=== PATIENT | female | born 1955 | race African-American/Black ===

== ENCOUNTER 2017-09-09 19:19 | Emergency (ER) | payer BC ==
[2017-09-09] MEDS ORDERED: METHYLPREDNISOLONE INJ 125 MG/2 ML SDV IV ONE (19:38)
--- NOTE | 2017-09-09 19:38 | ER Document Report ---
ED Allergic Reaction - General Mode of Arrival: Ambulatory Information source: Patient TRAVEL OUTSIDE OF THE [place] IN LAST 30 DAYS: No <MONTY AMADOR - Last Filed: 09/09/17 20:13> <REESE JENNINGS - Last Filed: 09/09/17 23:19> - General Chief Complaint: Lip Swelling Stated Complaint: LIP SWELLING Time Seen by Provider: 09/09/17 19:33 Notes: Patient is a 61-year-old female who presents to the emergency department today with complaints of lip swelling. Patient states she also has had a "sore and scratchy throat" since noticing this lip swelling. Patient states she has no allergies to medications that she knows of. Patient is on lisinopril. (MONTY AMADOR) - Related Data Allergies/Adverse Reactions: RICARDO Inhibitors Allergy (Verified 09/09/17 19:48) Angioneurotic Edema lisinopril Allergy (Verified 09/09/17 19:48) Angioneurotic Edema Past Medical History - General Information source: Patient - Social History Smoking Status: Never Smoker Cigarette use (# per day): No Frequency of alcohol use: None Drug Abuse: None Lives with: Family Family History: Reviewed & Not Pertinent Patient has suicidal ideation: No Patient has homicidal ideation: No - Past Medical History Cardiac Medical History: Reports: Hx Hypertension GI Medical History: Reports: Hx Gastroesophageal Reflux Disease Musculoskeltal Medical History: Reports Hx Arthritis Surgical Hx: Negative <MONTY AMADOR - Last Filed: 09/09/17 20:13> Review of Systems - Review of Systems Constitutional: No symptoms reported EENT: See HPI, Other - lip swelling, "scratchy/sore throat" Cardiovascular: No symptoms reported Respiratory: No symptoms reported Gastrointestinal: No symptoms reported Genitourinary: No symptoms reported Female Genitourinary: No symptoms reported Musculoskeletal: No symptoms reported Skin: No symptoms reported Hematologic/Lymphatic: No symptoms reported Neurological/Psychological: No symptoms reported -: Yes All other systems reviewed and negative <MONTY AMADOR - Last Filed: 09/09/17 20:13> Physical Exam - Vital signs Interpretation: Normal - General General appearance: Appears well, Alert - HEENT Head: Normocephalic, Atraumatic Eyes: Normal Pupils: PERRL Mouth/Lips: Angioedema - Bottom lower lip on left only Pharynx: Normal - Respiratory Respiratory status: No respiratory distress Chest status: Nontender Breath sounds: Normal Chest palpation: Normal - Cardiovascular Rhythm: Regular Heart sounds: Normal auscultation Murmur: No - Abdominal Inspection: Normal Distension: No distension Bowel sounds: Normal Tenderness: Nontender Organomegaly: No organomegaly - Back Back: Normal, Nontender - Extremities General upper extremity: Normal inspection, Nontender, Normal color, Normal ROM , Normal temperature General lower extremity: Normal inspection, Nontender, Normal color, Normal ROM , Normal temperature, Normal weight bearing. No: Jo's sign - Neurological Neuro grossly intact: Yes Cognition: Normal Orientation: AAOx4 Cindy Coma Scale Eye Opening: Spontaneous Cindy Coma Scale Verbal: Oriented Cindy Coma Scale Motor: Obeys Commands Cindy Coma Scale Total: 15 Speech: Normal Motor strength normal: LUE, RUE, LLE, RLE Sensory: Normal - Psychological Associated symptoms: Normal affect, Normal mood - Skin Skin Temperature: Warm Skin Moisture: Dry Skin Color: Normal <REESE JENNINGS - Last Filed: 09/09/17 23:19> - Vital signs Vitals: Temp Pulse Resp BP Pulse Ox 98.5 F 77 18 121/66 97 09/09/17 19:24 09/09/17 19:24 09/09/17 19:24 09/09/17 19:24 09/09/17 19:24 Course - Laboratory Result Diagrams: 09/09/17 19:43 09/09/17 19:43 <MONTY AMADOR - Last Filed: 09/09/17 20:13> - Laboratory Result Diagrams: 09/09/17 19:43 09/09/17 20:45 <REESE JENNINGS - Last Filed: 09/09/17 23:19> - Re-evaluation Re-evalutation: 09/09/17 23:17 Patient is much improved at this time will be discharged home. Patient's last dose of lisinopril was this morning. It did not seem that steroids helped much. Swelling has gone down however since she has been here. She is not to take RICARDO inhibitors ever again. Understands and agrees with plan. Stable for discharge. Return immediately if any worsening or concerning symptoms. (REESE JENNINGS) - Vital Signs Vital signs: Temp Pulse Resp BP Pulse Ox 98.5 F 77 17 121/80 97 09/09/17 19:24 09/09/17 19:24 09/09/17 22:55 09/09/17 22:56 09/09/17 22:55 - Laboratory Laboratory results interpreted by me: 09/09/17 20:45 Carbon Dioxide 21 L Discharge <MONTY AMADOR - Last Filed: 09/09/17 20:13> <REESE JENNINGS - Last Filed: 09/09/17 23:19> - Discharge Clinical Impression: RICARDO inhibitor-aggravated angioedema Qualifiers: Encounter type: initial encounter Qualified Code(s): T78.3XXA - Angioneurotic edema, initial encounter; T46.4X5A - Adverse effect of angiotensin-converting- enzyme inhibitors, initial encounter; T46.4X5A - Adverse effect of angiotensin- converting-enzyme inhibitors, initial encounter Condition: Stable Disposition: HOME, SELF-CARE Instructions: Angioedema ([facility]) Additional Instructions: Do not take lisinopril or any other RICARDO inhibitors ever again. Scribe Attestation: 09/09/17 23:18 I personally performed the services described in the documentation, reviewed and edited the documentation which was dictated to the scribe in my presence, and it accurately records my words and actions. (REESE JENNINGS) Scribe Documentation - Scribe Written by Scribe:: Davi Lagos, 09/09/2017 2016 acting as scribe for :: Everett <MONTY AMADOR - Last Filed: 09/09/17 20:13>
[2017-09-09 19:58] LABS: ABSOLUTE BASOPHILS # (AUTO) 0.1 10^3/uL (0.0-0.2); ABSOLUTE EOSINOPHILS # (AUTO) 0.4 10^3/uL (0.0-0.6); ABSOLUTE LYMPHOCYTES (AUTO) 2.8 10^3/uL (0.5-4.7); ABSOLUTE MONOCYTES (AUTO) 0.8 10^3/uL (0.1-1.4); ABSOLUTE NEUT (AUTO) 3.9 10^3/uL (1.7-8.2); BASOPHILS % (AUTO) 1.3 % (0-2); EOSINOPHILS % (AUTO) 5.2 % (0-6); HEMATOCRIT 40.5 % (36.0-47.0); HEMOGLOBIN 14.1 g/dL (12.0-15.5); HGB HCT DIFFERENCE 1.8; LYMPHOCYTES % (AUTO) 34.7 % (13-45); MEAN CORPUSCULAR HGB CONC 34.9 g/dL (32.0-36.0); MEAN CORPUSCULAR VOLUME 83 fl (80-97); MONOCYTES % (AUTO) 10.3 % (3-13); RED BLOOD COUNT 4.86 10^6/uL (3.72-5.28); RED CELL DISTRIBUTION WIDTH 13.5 % (11.5-14.0); SEGMENTED NEUTROPHILS % (AUTO) 48.5 % (42-78)
[2017-09-09 21:26] LABS: ANION GAP 14 (5-19); BLOOD UREA NITROGEN 18 mg/dL (7-20); CALCIUM 9.1 mg/dL (8.4-10.2); CARBON DIOXIDE 21 mmol/L (22-30); CHLORIDE 103 mmol/L (98-107); CREATININE RESULT 0.86 mg/dL (0.52-1.25); GLUCOSE 89 mg/dL (75-110); SODIUM 137.8 mmol/L (137-145)
[2017-09-09 21:44] LABS: PROTHROMBIN TIME 13.3 SEC (11.4-15.4)
[2017-09-09 21:45] LABS: PARTIAL THROMBOPLASTIN TIME 28.4 SEC (23.5-35.8)
[2017-09-09 23:05] VITALS: BP 121/80
== END 2017-09-09 23:06 | disposition home or self-care (01) ==
LOC: ER 19:19
DX: T78.3XXA Angioneurotic edema, initial encounter (principal); T46.4X5A Adverse effect of angiotensin-converting-enzyme inhibitors, initial encounter; R22.0 Localized swelling, mass and lump, head; I10 Essential (primary) hypertension; X58.XXXA Exposure to other specified factors, initial encounter; Z79.899 Other long term (current) drug therapy
CPT/HCPCS: 99283; 96374; 36415; 85025; 85610; 85730; 80048; J2930

== ENCOUNTER 2017-09-10 19:44 | Emergency (ER) | payer BC ==
[2017-09-10] MEDS ORDERED: KETOROLAC TROMETHAMINE INJ/PF 30 MG/1 ML SDV IV ONE (22:17)
[2017-09-10] MEDS ORDERED: METOCLOPRAMIDE HCL INJ/PF 10 MG/2 ML SDV IV ONE (22:17)
--- NOTE | 2017-09-10 22:20 | ER Document Report ---
ED General - General Chief Complaint: Headache Stated Complaint: HEADACHE Time Seen by Provider: 09/10/17 20:41 Notes: Patient is a 61-year-old female seen yesterday for angioedema secondary to an RICARDO inhibitor who presents today with a headache that is been present for 3 days. Patient is described as a bitemporal and frontal dull, constant, aching headache. States this feels similar to headaches she has had in the past. It was gradual onset and has been persistent since that time. Nothing worsens the headache. She has not tried anything to improve the headache stating "I do not have anything to take". She has not seen a primary care doctor regarding this concern. States there is nothing new or different about the headache that prompted her come in today other than that it still has not gone away. She denies any fever or constitutional symptoms. No vomiting, weakness or numbness. No history of aneurysms in the past. TRAVEL OUTSIDE OF THE [place] IN LAST 30 DAYS: No - Related Data Allergies/Adverse Reactions: RICARDO Inhibitors Allergy (Verified 09/09/17 19:48) Angioneurotic Edema lisinopril Allergy (Verified 09/09/17 19:48) Angioneurotic Edema Past Medical History - General Information source: Patient - Social History Smoking Status: Never Smoker Frequency of alcohol use: None Drug Abuse: None Lives with: Family Family History: Reviewed & Not Pertinent Patient has suicidal ideation: No Patient has homicidal ideation: No - Past Medical History Cardiac Medical History: Reports: Hx Hypertension Renal/ Medical History: Denies: Hx Peritoneal Dialysis GI Medical History: Reports: Hx Gastroesophageal Reflux Disease Musculoskeltal Medical History: Reports Hx Arthritis - Immunizations Hx Diphtheria, Pertussis, Tetanus Vaccination: Yes Review of Systems - Review of Systems Notes: Constitutional: Negative for fever. HENT: Negative for sore throat. Eyes: Negative for visual changes. Cardiovascular: Negative for chest pain. Respiratory: Negative for shortness of breath. Gastrointestinal: Negative for abdominal pain, vomiting or diarrhea. Genitourinary: Negative for dysuria. Musculoskeletal: Negative for back pain. Skin: Negative for rash. Neurological: Positive for headache 10 point ROS negative except as marked above and in HPI. Physical Exam - Vital signs Vitals: Temp Pulse Resp BP Pulse Ox 97.7 F 79 16 127/84 H 96 09/10/17 19:53 09/10/17 19:53 10/19/17 19:53 09/10/17 19:53 09/10/17 19:53 Interpretation: Normal Notes: PHYSICAL EXAMINATION: GENERAL: Well-appearing, well-nourished and in no acute distress. HEAD: Atraumatic, normocephalic. EYES: Pupils equal round and reactive to light, extraocular movements intact, sclera anicteric, conjunctiva are normal. ENT: nares patent, oropharynx clear without exudates. Moist mucous membranes. NECK: Normal range of motion, supple without lymphadenopathy LUNGS: Breath sounds clear to auscultation bilaterally and equal. No wheezes rales or rhonchi. HEART: Regular rate and rhythm without murmurs ABDOMEN: Soft, nontender, normoactive bowel sounds. No guarding, no rebound. No masses appreciated. EXTREMITIES: Normal range of motion, no pitting or edema. No cyanosis. NEUROLOGICAL: Face symmetric. Tongue protrudes midline. Extraocular motions intact. Pupils are 2 mm and equally reactive. Normal speech, normal gait. 5 out of 5 strength in both the distal and proximal upper and lower extremities bilaterally. Sensation is grossly intact throughout. Finger to nose testing normal. Pronator drift normal. PSYCH: Normal mood, normal affect. SKIN: Warm, Dry, normal turgor, no rashes or lesions noted. Course - Re-evaluation Re-evalutation: 09/10/17 22:18 Patient presents with a headache that is been present for the last 3 days. Unchanged today. Appears to be most consistent with tension versus migrainous type headache. Headache was not maximal in onset, patient has no focal neurologic deficits, no nuchal rigidity, vital signs within normal limits, no papilledema, and patient is overall well in appearance. Based on clinical history and examination I do not suspect an acute subarachnoid hemorrhage, dural venous sinus thrombosis, acute meningitis, or intercranial mass. Given my low clinical suspicion for any acute life-threatening etiology, I do not feel advanced neuro imaging or laboratory testing is indicated at this time. Patient has had resolution after administration of metoclopramide and ketorolac. Regarding patient's intermittent shortness of breath: She states that this is chronic in nature, has been present for greater than 5-6 years and has been evaluated extensively by her primary care doctor. She felt she would mention it while she was here for the headache but knows that this is not the reason for her acute presentation. I do not believe there is any indication for further labs or imaging in regards to this issue as she denies any symptoms at time of my presentation and again emphasized that there is nothing new or different about this relative to the last 5-6 years. I have encouraged her to follow-up with her primary care doctor regarding this concern. At this time will discharge with return precautions and follow-up recommendations. Verbal discharge instructions given a the bedside and opportunity for questions given. Medication warnings reviewed. Patient is in agreement with this plan and has verbalized understanding of return precautions and the need for primary care follow-up in the next 24-72 hours. - Vital Signs Vital signs: Temp Pulse Resp BP Pulse Ox 97.7 F 79 19 116/74 96 09/10/17 19:53 09/10/17 19:53 09/10/17 22:21 09/10/17 22:21 09/10/17 22:21 Discharge - Discharge Clinical Impression: Headache Qualifiers: Headache type: tension-type Headache chronicity pattern: acute headache Intractability: not intractable Qualified Code(s): G44.209 - Tension-type headache, unspecified, not intractable Condition: Good Disposition: HOME, SELF-CARE Additional Instructions: You have been seen in the Emergency Department (ED) for a headache. Please use Tylenol (acetaminophen) or Motrin (ibuprofen) as needed for symptoms, but only as written on the box. As we have discussed, please follow up with your primary care doctor as soon as possible regarding today's ED visit and your headache symptoms. Call your doctor or return to the ED if you have a worsening headache, sudden and severe headache, confusion, slurred speech, facial droop, weakness or numbness in any arm or leg, extreme fatigue, or other symptoms that concern you. Y Referrals: JAHAIRA ARRIAGA MD [Primary Care Provider] - Follow up as needed
[2017-09-10 22:31] VITALS: BP 116/74
== END 2017-09-10 22:50 | disposition home or self-care (01) ==
LOC: ER 19:44
DX: G44.209 Tension-type headache, unspecified, not intractable (principal); I10 Essential (primary) hypertension
CPT/HCPCS: 99283; J1885; J2765

== ENCOUNTER → 2017-10-19 | Outpatient (CLI) | payer BC ==
--- NOTE | 2017-10-19 11:39 | RADIOLOGY REPORT (SQ) ---
EXAM DESCRIPTION: SHOULDER LEFT 2 OR MORE VIEWS COMPLETED DATE/TIME: 10/19/2017 11:21 am REASON FOR STUDY: PAIN IN SHOULDER R51 HEADACHE COMPARISON: None. NUMBER OF VIEWS: Three views. TECHNIQUE: Internal rotation, external rotation, and Y view images acquired of the left shoulder. LIMITATIONS: None. FINDINGS: MINERALIZATION: Normal. BONES: No acute fracture or dislocation. No worrisome bone lesions. JOINTS: No dislocation. VISUALIZED LUNGS AND RIBS: No pneumothorax. No rib fracture. SOFT TISSUES: There are some small calcifications in the rotator cuff. OTHER: No other significant finding. IMPRESSION: Possible calcific tendinosis in the rotator cuff. No acute abnormality is seen the join t. TECHNICAL DOCUMENTATION: JOB ID: [id number] [employer]- All Rights Reserved
--- NOTE | 2017-10-19 13:10 | RADIOLOGY REPORT (SQ) ---
EXAM DESCRIPTION: CERV SP 4 OR 5 VIEWS COMPLETED DATE/TIME: 10/19/2017 11:21 am REASON FOR STUDY: NECK PAIN R51 HEADACHE COMPARISON: None. NUMBER OF VIEWS: Five views. TECHNIQUE: AP, lateral, obliques and odontoid radiographic images acquired of the cervical spine. LIMITATIONS: None. FINDINGS: MINERALIZATION: Normal. ALIGNMENT: Anatomic. VERTEBRAE: Vertebral bodies of normal height. DISCS: Mild disc space narrowing C4-5, C5-6, C6-7. FORAMINA: Mild multilevel right foraminal narrowing due to uncovertebral spurring. This is present a t C4-5, C5-6, C6-7. Left neural foramina are widely patent. LATERAL AND POSTERIOR ELEMENTS: Facets, lateral masses and spinous processes without significant find ings. HARDWARE: None in the spine. SOFT TISSUES: No masses or calcifications. Lung apices clear. OTHER: No other significant finding. IMPRESSION: Cervical spondylosis. No spinal malalignment, fracture or bone lesion. TECHNICAL DOCUMENTATION: JOB ID: [id number] [employer]- All Rights Reserved
--- NOTE | 2017-10-19 13:52 | RADIOLOGY REPORT (SQ) ---
EXAM DESCRIPTION: MRI HEAD COMBO COMPLETED DATE/TIME: 10/19/2017 12:31 pm REASON FOR STUDY: THROBBING HEADACHE R51 HEADACHE COMPARISON: None. TECHNIQUE: Multiplanar imaging includes noncontrasted T1, T2, FLAIR, and Diffusion with ADC map seq uences. Contrast enhanced T1 images. Images stored on PACS. CONTRAST TYPE AND DOSE: 15 mL Multihance. RENAL FUNCTION: GFR > 60. LIMITATIONS: None. FINDINGS: ANATOMY: No anomalies. Normal vascular flow voids. Pituitary fossa normal. CSF SPACES: Normal size and contour. No hemorrhage. CEREBRUM: Mild to moderate number of high-signal intensity lesions scattered throughout the white mat ter on FLAIR imaging with distribution suggesting small vessel vasculopathy. Likely microvascular is chemic change. Sulci and gyri normal in size and contour. No evidence of hemorrhage, mass or extraaxi al fluid collection. No enhancing lesions. POSTERIOR FOSSA: No signal alteration. No hemorrhage. No edema, masses or mass effect. Internal audit ory canals, cerebello-pontine angles, mastoids normal. DIFFUSION: Negative for acute or subacute infarction. ORBITS: No masses. Globes normal. PARANASAL SINUSES: No fluid levels. Mucosa normal. OTHER: No other significant finding. IMPRESSION: 1. 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 Preserved parenchymal volume. No hemorrhage, mass, shift or abnormal enh ancement. EVIDENCE OF ACUTE STROKE: NO. TECHNICAL DOCUMENTATION: JOB ID: [id number] [employer]- All Rights Reserved
== END ==
LOC: RAD 10:33
PROVIDERS: ATTEND Family Medicine
DX: M54.2 Cervicalgia (principal); M25.512 Pain in left shoulder; R51 Headache
CPT/HCPCS: 82565; 70553; 72050; 73030; A9577